=== PATIENT | female | born 1955 | race Caucasian/White ===

== ENCOUNTER 2018-12-01 05:30 | Day surgery (SDC) | payer MEDICAID ==
[2018-11-28 11:08] LABS: BASOPHILS % (AUTO) 0.6 % (0-1); EOSINOPHILS % (AUTO) 0.7 % (0-6); LYMPHOCYTES # (AUTO) 1.2 X10'3 (1.1-4.8); LYMPHOCYTES % (AUTO) 20.3 % (21-51); MEAN CORPUSCULAR HEMOGLOBIN 36.3 PG (27.0-31.0); MEAN CORPUSCULAR HGB CONC 34.4 g/dL (33.0-36.5); MEAN CORPUSCULAR VOLUME 105.5 FL (78-98); MONOCYTES # (AUTO) 0.4 X10'3 (0-0.9); MONOCYTES % (AUTO) 6.1 % (2-12); NEUTROPHILS # (AUTO) 4.2 X10'3 (1.8-7.7); NEUTROPHILS % (AUTO) 72.3 % (42-75); PRE OP HEMATOCRIT 42.4 % (35.0-45.0); PRE OP HEMOGLOBIN 14.6 g/dL (12.0-16.0); PRE OP PLATELET COUNT 230 X10'3 (140-440); RED BLOOD COUNT 4.02 X10'6 (4.20-5.60); RED CELL DISTRIBUTION WIDTH 13.1 % (11.5-14.5)
[2018-11-28 11:19] LABS: ALBUMIN 4.1 G/DL (3.4-5.0); ALBUMIN/GLOBULIN RATIO 0.9 (1.1-1.5); ALKALINE PHOSPHATASE 192 IU/L (46-116); BLOOD UREA NITROGEN 9 MG/DL (7-18); BUN/CREATININE RATIO 13.6 (6.6-38.0); CHLORIDE 102 MMOL/L (99-107); CREATININE 0.66 MG/DL (0.40-0.90); PRE OP ANION GAP 11 (8-16); PRE OP AST 59 U/L (10-37); PRE OP BILIRUB, TOTAL 0.6 MG/DL (0.0-1.0); PRE OP GLUCOSE 100 MG/DL (70-104); PRE OP SODIUM 138 MMOL/L (135-145); TOTAL CARBON DIOXIDE 25.5 MMOL/L (24-32); TOTAL PROTEIN 8.9 G/DL (6.4-8.2); eGFR 90 ML/MIN
[2018-11-28 11:28] LABS: PRE OP ALT 83 U/L (30-65)
[~2018-12-01] VITALS: Ht 157.5 cm; Wt 61.1 kg
[~2018-12-01 05:30] MED LIST: ACET-2119 PO; AMLO2.5T2 PO; ASPI-4 PO; ATOR80TA PO; BUSP15TA3 PO; CITA40TA22 PO; CLOP75TA15 PO; GABA600T13 PO; METO50TA16 PO; SIME80TA14 PO; TRAZ-219 PO; VARE1TAB21 PO
[2018-12-01] MEDS ORDERED: BUPIVAcaine/PF 2.5mg/ml (0.25%) 10ml vial ONE (06:35)
[2018-12-01] MEDS ORDERED: famotidine 20mg tablet PO ONE (07:00)
[2018-12-01] MEDS ORDERED: ceFAZolin 1GM/D5W- ADD-VANTAGE 50 ML IV ONE (07:00)
[2018-12-01] MEDS ORDERED: ringers solution, lacted 1,000 ML IV SCH (07:00)
[2018-12-01] MEDS ORDERED: DOCUMENT DATE & TIME OF BETA-BLOCKER PO ONE (07:00)
[2018-12-01] MEDS ORDERED: atenolol 50mg tablet PO ONE (07:10)
[2018-12-01] MEDS ORDERED: LIDOcaine 0.5% (5mg/ml) 50ml vial ONE (07:39)
[2018-12-01] MEDS ORDERED: midazolam 2 mg/2 ml injection ONE (09:35)
[2018-12-01] MEDS ORDERED: fentaNYL/PF 50MCG/1 ML 2ML syringe ONE (09:35)
[2018-12-01] MEDS ORDERED: hydrALAZINE 20mg/ml inj. IV ONE (09:57)
[2018-12-01 10:01] VITALS: BP 122/60
--- NOTE | 2018-12-01 10:01 | NUR ---
Received from OR via [facility], accompanied by Anesthesiologist GORDO and report given by Anesthesiolgist. PATIENT WITHH 20G PIV IN LEFT UE RUNNING LR AT 100. DENIES PAIN TO RIGHT WRIST THAT IS IN JANNY AND SPLINT. VSS. GIBBONS. + CAP REFILL AND SENSATION. VSS. WILL CONTINUE TO ASSESS. Addendum: 12/01/18 at 1020 by Dutch Tillman RN, RN Amended: Links added.
[2018-12-01 10:11] VITALS: BP 128/68
[2018-12-01 10:21] VITALS: BP 132/77
[2018-12-01 10:31] VITALS: BP 130/78
--- NOTE | 2018-12-01 10:41 | NUR ---
ALL DC CRITERIA HAS BEEN MET. IV TAKEN OUT WITHOUT COMPLICATIONS. ALL INSTRUCTIONS COVERED AND ALL QUESTIONS ANSWERED. DRESSINGS CDI. OUT VIA WHEELCHAIR TO PERSONAL VEHICLE WHERE PATIENT WAS SECURED IN AND DRIVEN HOME BY FAMILY. DRESSED BY STUDENT KIM KUMARI. OUT VIA WHEELCHAIR TO FLORIDALMA CARGO. VSS. DENIES PAIN. Addendum: 12/01/18 at 1052 by Dutch Zurita - KIM ALVAREZ Amended: Links added.
[2018-12-01 11:03] VITALS: BP 147/86
[2018-12-01 11:13] VITALS: BP 147/86
== END 2018-12-01 10:41 | disposition home or self-care (01) ==
LOC: PAS 05:30
PROVIDERS: ATTEND Orthopaedic Surgery Hand Surgery
DX: G56.03 Carpal tunnel syndrome, bilateral upper limbs (principal); I25.2 Old myocardial infarction; I69.354 Hemiplegia and hemiparesis following cerebral infarction affecting left non-dominant side; M19.90 Unspecified osteoarthritis, unspecified site; F32.9 Major depressive disorder, single episode, unspecified; F41.9 Anxiety disorder, unspecified; Z87.891 Personal history of nicotine dependence; Z72.89 Other problems related to lifestyle; Z95.5 Presence of coronary angioplasty implant and graft; Z79.82 Long term (current) use of aspirin; Z79.899 Other long term (current) drug therapy
CPT/HCPCS: 29848; 36415; 64721; 80053; 82948; 85025; 93005; A6222; J0360; J0690; J2001; J2250; J3010; J3490; A4215; J7120

== ENCOUNTER 2019-02-03 13:51 | Emergency (ER) | payer MEDICAID ==
[~2019-02-03] VITALS: Ht 157.5 cm; Wt 60.0 kg
[2019-02-03] MEDS ORDERED: acetaminophen 325mg tablet PO ONE (14:15)
[2019-02-03] MEDS ORDERED: vancomycin/NS 1 GM ADD-VANTAGE 250 ML IV ONE (14:20)
[2019-02-03] MEDS ORDERED: CefTRIAXone 2gm/D5W 50ml 50 ML IV ONE (14:20)
[2019-02-03] MEDS ORDERED: SULF1TAB49 PO (14:30)
[2019-02-03] MEDS ORDERED: CEPH-572 PO (14:30)
[2019-02-03] MEDS ORDERED: ibuprofen 200mg tablet PO ONE (15:30)
--- NOTE | 2019-02-03 15:39 | NUR ---
WAS NOTIFIED THAT PT'S TEMP INCREASED AFTER TYLENOL DOSE, NOW 102.8. IBUPROFEN ORDERED PER PROTOCOL FOR ANTIPYRETICS, DOSE GIVEN, SEE MAR
[2019-02-03 17:48] VITALS: BP 106/65
== END 2019-02-03 17:52 | disposition home or self-care (01) ==
LOC: ER 13:52
DX: S50.812A Abrasion of left forearm, initial encounter (principal); L03.114 Cellulitis of left upper limb; I10 Essential (primary) hypertension; Z86.73 Personal history of transient ischemic attack (TIA), and cerebral infarction without residual deficits; Z98.890 Other specified postprocedural states; Z79.82 Long term (current) use of aspirin; Z79.899 Other long term (current) drug therapy; W55.03XA Scratched by cat, initial encounter; Y93.89 Activity, other specified; Y92.89 Other specified places as the place of occurrence of the external cause; Y99.9 Unspecified external cause status
CPT/HCPCS: 96365; 96366; 96368; 99284; J0696; J3370

== ENCOUNTER 2021-09-12 15:26 | Emergency (ER) | payer MEDICAID ==
[~2021-09-12] VITALS: Ht 157.5 cm; Wt 62.3 kg
[~2021-09-12 15:26] MED LIST changes: -TRAZ-219 PO; +TRAZ-256 PO
[2021-09-12 16:17] VITALS: BP 100/57
[2021-09-12] MEDS ORDERED: ondansetron 4mg rapidly disintigrating tab PO ONE (16:45)
[2021-09-12] MEDS ORDERED: HYDROcodone/acetaminophen 5mg/325mg tablet PO ONE (16:45)
[2021-09-12] MEDS ORDERED: HYDR-3965 PO (18:09)
[2021-09-12] MEDS ORDERED: ONDA4TAB12 PO (18:09)
== END 2021-09-12 18:16 | disposition home or self-care (01) ==
LOC: ER 15:26
DX: M25.562 Pain in left knee (principal); M25.572 Pain in left ankle and joints of left foot; M79.652 Pain in left thigh; I10 Essential (primary) hypertension; F41.9 Anxiety disorder, unspecified; F32.9 Major depressive disorder, single episode, unspecified; Z98.890 Other specified postprocedural states; Z86.73 Personal history of transient ischemic attack (TIA), and cerebral infarction without residual deficits; Z79.82 Long term (current) use of aspirin; Z79.899 Other long term (current) drug therapy
CPT/HCPCS: 73502; 73564; 99284

== ENCOUNTER 2023-04-10 14:20 | Emergency (ER) | payer MEDICARE, MEDICAID ==
[~2023-04-10] VITALS: Ht 157.5 cm; Wt 58.0 kg
[~2023-04-10 14:20] MED LIST changes: -ACET-2119 PO; +ASPI-1397 PO; -ASPI-4 PO; +ATOR40TA72 PO; -ATOR80TA PO; +AZEL6DRO5 EACHEYE; +CITA20TA28 PO; -CITA40TA22 PO; +CYCL1DRO2 EACHEYE; +DULO20CA18 PO; +LOP12.5T PO; -METO50TA16 PO; +NITR0.4T51 SL; -SIME80TA14 PO; +TRIA80OI TD; +VARE0.5T6 PO; -VARE1TAB21 PO
[2023-04-10] MEDS ORDERED: CEPH-585 PO (15:46)
[2023-04-10 16:05] VITALS: BP 140/78; PULSE 88; RESP 16; TEMP 98.2; O2SAT 97
== END 2023-04-10 16:07 | disposition home or self-care (01) ==
LOC: ER 14:22
DX: L84 Corns and callosities (principal); L03.116 Cellulitis of left lower limb; I11.0 Hypertensive heart disease with heart failure; I10 Essential (primary) hypertension; F17.200 Nicotine dependence, unspecified, uncomplicated; Z79.899 Other long term (current) drug therapy
CPT/HCPCS: 99284